=== PATIENT | male | born 1960 | race Caucasian/White ===

== ENCOUNTER → 2016-10-25 | Outpatient (REF) ==
[~2016-10-25] MED LIST: ADVAIR 250/28 DISKU1 IH; ALBUTEROL SULFAT3 M3 IH; ASPI325T6 PO; ASPIRIN 32325 MG/TAB PO; ASPIRIN 81M81 MG/TA2 PO; ASPIRIN E.C. 8181 MG PO; CELEBREX200 MG PO; CELEXA PO; CELEXA10 MG PO; CELEXA40 MG PO; CIPRO 500MG TA500 MG PO; CYCLOBENZAPRINE10 MG PO; DEPO-TESTOS200 MG/M1 IM; FLAGYL500 MG PO; FLEXERIL 1010 MG/TAB PO; FLEXERIL10 MG PO; IMDUR 30MG30 MG/TAB PO; LASIX 40MG TABL40 MG PO; LIPITOR 40MG TA40 MG PO; LOPRESSOR 225 MG/TAB PO; LYRICA 75MG CAP75 MG PO; LYRICA75 MG PO; MEDROL 4MG DOSPA4 MG PO; MS CONTIN 330 MG/TAB PO; MS CONTIN30 MG PO; MSIR30 MG PO; NEURONTIN300 MG/CAP PO; NITROSTAT0.4 MG/TAB SL; PERCOCET 325 MG1 TAB PO; PHENERGAN 25 TA25 MG PO; PLAVIX 75MG TAB75 MG PO; PRIL40 PO; PRILOSEC 20MG20 MG PO; PROAIR HFA0.09 MG/AC IH; PROVENTIL0.09 MG/A1 IH; PROVENTIL0.09 MG/AC IH; RT ADVAIR 228 DISKUS IH; SENNA8.6 MG PO; ZOCOR 40MG40 MG PO; ZOCOR PO; ZOFRAN 4MG T4 MG/TAB PO; ZOFRAN8 MG PO; ZYPREXA 5MG5 MG PO
[2016-10-25 17:21] LABS: THYROID STIMULATING HORMONE 2.79 uIU/mL (0.465-4.680)
[2016-10-25 18:31] LABS: PSA-TOTAL 0.11 ng/mL (0-4)
== END ==
LOC: ZLAB.WCH 15:54
PROVIDERS: Internal Medicine
DX: Z01.89 Encounter for other specified special examinations (principal)
CPT/HCPCS: G0103

== ENCOUNTER → 2017-10-26 | Outpatient (REF) | LOC: ZLAB.WCH 18:10 | DX: Z12.5 Encounter for screening for malignant neoplasm of prostate (principal) | CPT/HCPCS: G0103 ==

== ENCOUNTER → 2018-07-05 | Outpatient (REF) | LOC: ZLAB.WCH 16:13 | DX: Z01.89 Encounter for other specified special examinations (principal) ==

== ENCOUNTER → 2018-10-25 | Outpatient (REF) | LOC: ZLAB.WCH 18:26 | DX: Z01.89 Encounter for other specified special examinations (principal) ==